=== PATIENT | male | born 2000 | race Caucasian/White ===

== ENCOUNTER 2024-11-29 16:42 | Emergency (ER) | payer MEDICAID ==
[~2024-11-29] VITALS: Ht 177.8 cm; Wt 83.0 kg
[2024-11-29 16:48] VITALS: O2SAT 96
[2024-11-29] MEDS: LEVETIRACETAM 1000MG PREMIX 100 ML IV ONE (17:22)
[2024-11-29 18:39] LABS: BASOPHILS % 0.3 % (0.0-2.0); EOSINOPHILS % 2.6 % (0.0-5.0); HEMATOCRIT. 45.7 % (42.0-52.0); HEMOGLOBIN. 14.9 g/dL (14.0-18.0); LYMPHOCYTES % 40.3 % (20.0-50.0); MEAN CORPUSCULAR HGB CONC 32.6 g/dL (31.0-37.0); MEAN CORPUSCULAR VOLUME 88.9 fL (80.0-94.0); MONOCYTES % 4.4 % (2.0-8.0); NEUTROPHILS % 52.4 % (40.0-76.0); PLATELET 230 x1000/uL (130-400); RED BLOOD CELL COUNT 5.14 mill/uL (4.7-6.1); RED CELL DISTRIBUTION WIDTH 13.1 % (11.6-14.6); WHITE BLOOD COUNT 9.8 x1000/uL (4.5-11.0)
[2024-11-29 20:21] LABS: CHLORIDE 105 mEq/L (98-107); POTASSIUM 6.1 mEq/L (3.5-5.1); SODIUM 137 mEq/L (136-145)
[2024-11-29 20:22] LABS: CALCIUM 9.4 mg/dL (8.7-10.4); CARBON DIOXIDE 18 mEq/L (21-32)
[2024-11-29 20:27] LABS: CREATININE 0.9 mg/dL (0.6-1.3); GLUCOSE 139 mg/dL (70-105); UREA NITROGEN BLOOD 16 mg/dL (9-23)
[2024-11-29 20:29] LABS: ALANINE AMINOTRANSFERASE 47 IU/L (10-49); ALBUMIN 4.5 g/dL (3.2-4.8); ASPARTATE AMINOTRANSFERASE 53 IU/L (<34); BILIRUBIN DIRECT 0.1 mg/dL (<=3.0); BILIRUBIN TOTAL 0.5 mg/dL (0.1-1.0); ETHANOL BLOOD < 10 mg/dL (<10); PROTEIN TOTAL 7.9 g/dL (6.0-8.3)
[2024-11-29 22:38] LABS: CLARITY URINE CLOUDY (CLEAR); COLOR URINE YELLOW (YELLOW); GLUCOSE URINE NEGATIVE (NEGATIVE); KETONES URINE NEGATIVE (NEGATIVE); LEUKOCYTE ESTERASE URINE NEGATIVE (NEGATIVE); NITRITE URINE NEGATIVE (NEGATIVE); OCCULT BLOOD URINE NEGATIVE (NEGATIVE); PROTEIN URINE NEGATIVE (NEGATIVE); SPECIFIC GRAVITY URINE 1.022 (1.005-1.030); UROBILINOGEN URINE 0.2 E.U./dL (0.2-1.0)
[2024-11-29 22:41] LABS: *AMPHETAMINES SCREEN URINE NEGATIVE (NEGATIVE)
[2024-11-29 22:42] LABS: *BARBITURATES SCREEN URINE NEGATIVE (NEGATIVE); *BENZODIAZEPINES SCREEN URINE NEGATIVE (NEGATIVE); *COCAINE SCREEN URINE NEGATIVE (NEGATIVE); CANNABINOID URINE SCREEN NEGATIVE (NEGATIVE); ECSTASY MDMA SCREEN URINE NEGATIVE (NEGATIVE); METHADONE URINE SCREEN NEGATIVE (NEGATIVE); OPIATES URINE SCREEN NEGATIVE (NEGATIVE); PHENCYCLIDINE URINE SCREEN NEGATIVE (NEGATIVE)
[2024-11-29 22:56] LABS: BACTERIA URINE 3+; RBC URINE 0-2 /hpf (0-2); SQUAMOUS EPITHELIAL CELL URINE FEW /lpf (RARE/1+); WBC URINE 0-2 /hpf (0-2)
[2024-11-29 22:57] LABS: AMORPHOUS SEDIMENT URINE 1+ /lpf
[2024-11-30 00:03] LABS: CHLORIDE 106 mEq/L (98-107); SODIUM 143 mEq/L (136-145)
[2024-11-30 00:04] LABS: CARBON DIOXIDE 25 mEq/L (21-32)
[2024-11-30 00:09] LABS: CREATININE 0.9 mg/dL (0.6-1.3); GLUCOSE 95 mg/dL (70-105); UREA NITROGEN BLOOD 11 mg/dL (9-23)
[2024-11-30] MEDS: POTASSIUM CHLORIDE 20MEQ TABLET SR PO ONE (00:25)
[2024-11-30 01:33] VITALS: BP 122/73; PULSE 89; RESP 13; O2SAT 96
== END 2024-11-30 02:06 | disposition short-term general hospital (02) ==
LOC: ER 17:44
DX: R56.9 Unspecified convulsions (principal); E87.6 Hypokalemia; F84.0 Autistic disorder; Z88.0 Allergy status to penicillin
CPT/HCPCS: 80076; 80305; 80048; 81003; 80320; 85025; 36415; 96365; 99285; J1953; Z7610 ×4; A4606; G0480